=== PATIENT | female | born 1970 | race African-American/Black ===

== ENCOUNTER 2016-12-01 08:56 | Emergency (ER) | payer MEDICAID ==
[~2016-12-01] VITALS: Ht 172.7 cm; Wt 72.6 kg
--- NOTE | 2016-12-01 10:14 | NUR ---
Patient discharged to home in stable conditon. Written and verbal after care instructions given. Patient verbalizes understanding of instructions.pt walks in steady gait. pt in [facility] to leave [facility] a job interview, refused the [employer]. aware, talked to the pt. Addendum: 12/01/16 at 1015 by JOSSELYN pt left before written d/c along with the px of motrin given to the pt.
== END 2016-12-01 10:10 | disposition home or self-care (01) ==
LOC: ER 08:56
DX: G43.909 Migraine, unspecified, not intractable, without status migrainosus (principal)
CPT/HCPCS: A4663; J7030

== ENCOUNTER 2017-10-24 13:49 | Inpatient (IN) | payer MEDICAID ==
[~2017-10-24] VITALS: Ht 172.7 cm; Wt 77.1 kg
[2017-10-24 14:41] LABS: BASOPHILS % (AUTO) 0.2 % (0.0-2.0); EOSINOPHILS % (AUTO) 0.7 % (0.0-7.0); HEMATOCRIT 31.6 % (31.2-41.9); HEMOGLOBIN 10.8 g/dL (10.9-14.3); LYMPHOCYTES # (AUTO) 1.6 K/uL (20.0-40.0); LYMPHOCYTES % (AUTO) 40.4 % (20.5-51.5); MEAN CORPUSCULAR HEMOGLOBIN 28.1 uug (24.7-32.8); MEAN CORPUSCULAR HGB CONC 34 g/dL (32.3-35.6); MEAN CORPUSCULAR VOLUME 82.5 fL (75.5-95.3); MONOCYTES # (AUTO) 0.3 K/uL (2.0-10.0); MONOCYTES % (AUTO) 8.1 % (0.0-11.0); NEUTROPHILS % (AUTO) 50.6 % (38.5-71.5); PLATELET COUNT (AUTO) 263 K/uL (179-408); RED BLOOD CELL COUNT(AUTO) 3.83 MIL/uL (3.63-4.92); WHITE BLOOD COUNT (AUTO) 4.1 K/uL (3.8-11.8)
[2017-10-24 14:49] LABS: CREATININE 0.8 mg/dL (0.6-1.3); POTASSIUM 3.5 mmol/L (3.5-5.1)
[2017-10-24 14:55] LABS: BILIRUBIN,DIRECT 0.1 mg/dL (0.0-0.2); BILIRUBIN,TOTAL 0.2 mg/dL (0.2-1.0); TOTAL PROTEIN, SERUM 7.2 g/dL (6.4-8.2)
[2017-10-24] MEDS ORDERED: VANCOMYCIN IV 1,000 MG in IV DEXTROSE 5% 250 ML IV ONE (15:15)
[2017-10-24] MEDS ORDERED: PIPERACILLIN SODIUM/TAZOBACTAM 3.375 G in IV DEXTROSE 5% 50 ML IV ONE (15:15)
[2017-10-24] MEDS ORDERED: VANCOMYCIN IV 200 ML ONE (15:36)
[2017-10-24] MEDS ORDERED: PIPERACILLIN/TAZOBACTAM/D5W 50 ML IV ONE (15:36)
[2017-10-24 16:50] VITALS: BP 129/78
[2017-10-24] MEDS ORDERED: ZOLPIDEM 5 MG TABLET PO PRN (17:00)
[2017-10-24] MEDS ORDERED: VANCOMYCIN IV 1 G in PREMIXED 0 EACH IV SCH (17:00)
[2017-10-24] MEDS ORDERED: MAGNESIUM HYDROXIDE 30 ML LIQUID UDC PO PRN (17:00)
[2017-10-24] MEDS ORDERED: HYDROCODONE/APAP 10-325 MG TABLET PO PRN (17:00)
[2017-10-24] MEDS ORDERED: ONDANSETRON 4 MG/2 ML VIAL IV PRN (17:00)
[2017-10-24] MEDS ORDERED: HYDROCODONE/APAP 5-325MG TABLET PO PRN (17:00)
[2017-10-24] MEDS ORDERED: ACETAMINOPHEN 325 MG TABLET PO PRN (17:00)
[2017-10-24] MEDS: IV NS 1000 ML 1,000 ML IV PRN (17:58)
[2017-10-24 20:00] VITALS: BP 128/73
[2017-10-25] MEDS: VANCOMYCIN IV 1,250 MG in IV DEXTROSE 5% 500 ML IV SCH ×2 (01:23→12:06)
[2017-10-25 04:00] VITALS: BP 130/79
[2017-10-25 08:51] LABS: BASOPHILS % (AUTO) 0.4 % (0.0-2.0); EOSINOPHILS % (AUTO) 0.6 % (0.0-7.0); HEMATOCRIT 32.9 % (31.2-41.9); HEMOGLOBIN 11.2 g/dL (10.9-14.3); LYMPHOCYTES # (AUTO) 0.8 K/uL (20.0-40.0); MEAN CORPUSCULAR HGB CONC 34 g/dL (32.3-35.6); MEAN CORPUSCULAR VOLUME 82.1 fL (75.5-95.3); MONOCYTES # (AUTO) 0.3 K/uL (2.0-10.0); PLATELET COUNT (AUTO) 258 K/uL (179-408); RED BLOOD CELL COUNT(AUTO) 4.01 MIL/uL (3.63-4.92); WHITE BLOOD COUNT (AUTO) 4.1 K/uL (3.8-11.8)
[2017-10-25 09:00] LABS: CREATININE 0.8 mg/dL (0.6-1.3); MAGNESIUM 1.9 mg/dL (1.8-2.4); PHOSPHOROUS 2.9 mg/dL (2.5-4.9); POTASSIUM 4.4 mmol/L (3.5-5.1)
[2017-10-25 09:10] LABS: THYROID STIMULATING HORMONE 0.878 mIU/mL (0.358-3.740)
[2017-10-25] MEDS: IV NS 1000 ML 1,000 ML IV PRN (10:21)
[2017-10-25 11:43] VITALS: BP_SYST 109; BP_SYST 99; BP_DIAS 56; BP_DIAS 62
[2017-10-25 15:31] VITALS: BP 120/72
== END 2017-10-25 18:05 | disposition left against medical advice (07) | DRG 383 ==
LOC: ER 13:56 → MED 16:27
DX: L03.114 Cellulitis of left upper limb (principal); G43.909 Migraine, unspecified, not intractable, without status migrainosus
CPT/HCPCS: 36415; 70030-TC; 71045; 83605; 83735; 84100; 84443; 84703; 85025; 85730; 87040; 93005; A4663; J2543; J3370; J7030; J7060

== ENCOUNTER 2020-05-12 21:29 | Emergency (ER) | payer MEDICAID ==
[~2020-05-12] VITALS: Ht 172.7 cm; Wt 81.6 kg
--- NOTE | 2020-05-12 22:11 | NUR ---
Dr Chandler is at bedside for MSE.
[2020-05-12] MEDS ORDERED: KETOROLAC TROMETHAMINE 30 MG INJ IM ONE (22:15)
[2020-05-12] MEDS ORDERED: KETOROLAC TROMETHAMINE 30 MG INJ ONE (22:23)
--- NOTE | 2020-05-12 22:48 | NUR ---
Xrays taken, pending results.
[2020-05-12] MEDS ORDERED: IBUP-1953 PO (23:04)
[2020-05-12] MEDS ORDERED: CYCL10TA9 PO (23:04)
--- NOTE | 2020-05-12 23:07 | NUR ---
Patient discharged to home in stable condition. Written and verbal after care instructions given. Patient verbalizes understanding of instructions. Stressed follow up or return to ER for worsening s/s. Ambulated from ER with stable gait. All belongings with patient. VSS
[2020-05-12 23:08] VITALS: BP 128/81
== END 2020-05-12 23:08 | disposition home or self-care (01) ==
LOC: ER 21:35
DX: S16.1XXA Strain of muscle, fascia and tendon at neck level, initial encounter (principal); V43.62XA Car passenger injured in collision with other type car in traffic accident, initial encounter; Y92.410 Unspecified street and highway as the place of occurrence of the external cause; M25.521 Pain in right elbow; M48.02 Spinal stenosis, cervical region; G43.909 Migraine, unspecified, not intractable, without status migrainosus
CPT/HCPCS: 72050; 73080; 96372; 99284; J1885; A4663